=== PATIENT | female | born 2000 | race Hispanic/Latino ===

== ENCOUNTER 2023-02-13 16:35 | Emergency (ER) | payer MEDICAID, OTHER ==
[~2023-02-13] VITALS: Ht 157.5 cm; Wt 72.6 kg
[2023-02-13 17:49] VITALS: BP 126/82; PULSE 82; RESP 16; O2SAT 99
== END 2023-02-13 20:42 | disposition left against medical advice (07) ==
LOC: EDH 16:35
DX: M54.9 Dorsalgia, unspecified (principal); Z53.21 Procedure and treatment not carried out due to patient leaving prior to being seen by health care provider
CPT/HCPCS: 99281